=== PATIENT | male | born 1975 | race Caucasian/White ===

== ENCOUNTER 2022-01-23 23:21 | Emergency (ER) | payer OTHER ==
[~2022-01-23] VITALS: Ht 180.3 cm; Wt 101.8 kg
[2022-01-24] MEDS ORDERED: IBUPROFEN 600MG TABLET PO STA (03:37)
[2022-01-24] MEDS ORDERED: NAPR-681 PO (05:12)
[2022-01-24] MEDS ORDERED: CIPHCO LEFT EAR (05:12)
[2022-01-24 05:23] VITALS: BP 119/65
== END 2022-01-24 05:25 | disposition home or self-care (01) ==
LOC: ER 01-24 00:58
DX: H60.92 Unspecified otitis externa, left ear (principal); H61.22 Impacted cerumen, left ear
CPT/HCPCS: 99283

== ENCOUNTER 2022-05-09 09:28 | Emergency (ER) | payer MEDICAID, OTHER ==
[~2022-05-09] VITALS: Ht 177.8 cm; Wt 104.0 kg
[~2022-05-09 09:28] MED LIST: CIPHCO LEFT EAR; NAPR-681 PO
[2022-05-09] MEDS ORDERED: KETOROLAC 30MG/ML VIAL IM ONE (11:00)
[2022-05-09 11:15] LABS: CLARITY URINE CLEAR (CLEAR); COLOR URINE YELLOW (YELLOW); KETONES URINE NEGATIVE (NEGATIVE); LEUKOCYTE ESTERASE URINE NEGATIVE (NEGATIVE); NITRITE URINE NEGATIVE (NEGATIVE); OCCULT BLOOD URINE TRACE (NEGATIVE); PH URINE 7.5 (4.5-8.0); PROTEIN URINE NEGATIVE (NEGATIVE); SPECIFIC GRAVITY URINE 1.017 (1.005-1.030); UROBILINOGEN URINE 0.2 E.U./dL (0.2-1.0)
[2022-05-09 11:17] VITALS: BP 133/73
[2022-05-09 11:42] LABS: BASOPHILS % 0.5 % (0.0-2.0); EOSINOPHILS % 0.5 % (0.0-5.0); HEMATOCRIT. 44.5 % (42.0-52.0); HEMOGLOBIN. 15.3 g/dL (14.0-18.0); LYMPHOCYTES % 31.9 % (20.0-50.0); MEAN CORPUSCULAR HEMOGLOBIN 29.9 pg (28.0-32.0); MEAN CORPUSCULAR VOLUME 87.3 fL (80.0-94.0); MEAN PLATELET VOLUME 8.4 fl (7.4-10.4); MONOCYTES % 8.6 % (2.0-8.0); NEUTROPHILS % 58.5 % (40.0-76.0); PLATELET 227 x1000/uL (130-400); RED CELL DISTRIBUTION WIDTH 13.6 % (11.6-14.6)
[2022-05-09 12:03] LABS: CHLORIDE 108 mEq/L (98-107)
[2022-05-09] MEDS ORDERED: IOHEXOL-300 100 ML BOTTLE ONE (14:41)
== END 2022-05-09 15:48 | disposition home or self-care (01) ==
LOC: ER 09:28
DX: R10.30 Lower abdominal pain, unspecified (principal); M54.50 Low back pain, unspecified
CPT/HCPCS: 36415; 74177; 80053; 81003; 83605; 83690; 85025; 96372; 99285; J1885; Q9967